=== PATIENT | female | born 1955 | race African-American/Black ===

== ENCOUNTER 2017-07-16 08:17 | Emergency (ER) | payer OTHER ==
[~2017-07-16] VITALS: Ht 167.6 cm; Wt 52.2 kg
[~2017-07-16 08:17] MED LIST: HYDR-971 PO
[2017-07-16 08:26] VITALS: BP 123/82
--- NOTE | 2017-07-16 08:49 | PHYS DOC ---
Past Medical History Past Medical History: No Pertinent History, Pneumonia Past Surgical History: No Surgical History Alcohol Use: None Drug Use: None Adult General Chief Complaint Chief Complaint: INSECT BITE [facility] HPI Patient is a 61 year old female presents to the emergency department with a history of insect bites to the right lower leg and right forearm. Patient states she was walking thru the grass when she noticed the bites. Patient states they itch and are very irritating. Patient denies fever, chills, or any drainage or discharge noted to the areas. Patient states she has not placed anything on the sites. Review of Systems Review of Systems Constitutional: Denies fever or chills [] Eyes: Denies change in visual acuity, redness, or eye pain [] HENT: Denies nasal congestion or sore throat [] Respiratory: Denies cough or shortness of breath [] Cardiovascular: No additional information not addressed in HPI [] GI: Denies abdominal pain, nausea, vomiting, bloody stools or diarrhea [] : Denies dysuria or hematuria [] Musculoskeletal: Denies back pain or joint pain [] Integument: Denies rash or skin lesions. Insect bites to right lower leg and right forearm. Neurologic: Denies headache, focal weakness or sensory changes [] Endocrine: Denies polyuria or polydipsia [] Allergies Allergies Allergies Coded Allergies Type Severity Reaction Last Updated Verified No Known Drug Allergies 01/06/14 No Physical Exam Physical Exam Constitutional: Well developed, well nourished, no acute distress, non-toxic appearance. [] HENT: Normocephalic, atraumatic, bilateral external ears normal, oropharynx moist, no oral exudates, nose normal. [] Eyes: PERRLA, EOMI, conjunctiva normal, no discharge. [] Neck: Normal range of motion, no tenderness, supple, no stridor. [] Cardiovascular:Heart rate regular rhythm Lungs & Thorax: no respiratory distress Skin: Warm, dry, no erythema, no rash. Patient with multiple bites to the right lower leg, and right forearm. Areas appear red in color, no drainage or discharge noted from the site. Back: No tenderness Extremities: No tenderness, no cyanosis, no clubbing, ROM intact, no edema. [] Neurologic: Alert and oriented X 3, normal motor function, normal sensory function, no focal deficits noted. [] Psychologic: Affect normal, judgement normal, mood normal. [] Current Patient Data Vital Signs Vital Signs Date Time Temp Pulse Resp B/P (MAP) Pulse Ox O2 Delivery O2 Flow Rate FiO2 07/16/17 08:26 98.6 67 16 123/82 (96) 97 Room Air 98.6 EKG EKG [] Radiology/Procedures Radiology/Procedures [] Course & Med Decision Making Course & Med Decision Making Pertinent Labs and Imaging studies reviewed. (See chart for details) Patient was instructed to keep the area clean and dry. Clean the site with soap and water. Watch for signs and symptoms of infection. Keep the area cool to prevent irritation. Patient was recommended to use over the counter medications for itching. Patient was also encouraged to use Benadryl 25 mg for itching and irritation. Patient agrees with discharge instructions. Patient was provided with signs and symptoms that become worse. Patient agrees with discharge instructions, treatment regimen and followup recommendations. [] Dragon Disclaimer Dragon Disclaimer This electronic medical record was generated, in whole or in part, using a voice recognition dictation system. Departure Departure Impression: Primary Impression: Insect bite Disposition: 01 HOME, SELF-CARE Condition: STABLE Referrals: TRUNG PORTILLO (PCP) Patient Instructions: Insect Bite, [id number] Additional Instructions: Activity as tolerated. Of headache or hydrocortisone cream may also be used to help with itching and irritation. Benadryl 25 mg every 6 hours also help however this medication will cause drowsiness do not take any be alert and oriented. Keep the area clean dry and cool. The conus will help prevent irritation as well. Watch for signs and symptoms of infection: Redness, warmth, tenderness or any yellow/greenish drainage of a come from the site physician occur follow-up through primary care physician immediately. Follow-up with your primary care physician as needed. Return back to emergency department for signs and symptoms that become worse.JODI Xiong APRN Jul 16, 2017 08:49
== END 2017-07-16 08:59 | disposition home or self-care (01) ==
LOC: ER 08:17
DX: S80.861A Insect bite (nonvenomous), right lower leg, initial encounter (principal); S50.861A Insect bite (nonvenomous) of right forearm, initial encounter; W57.XXXA Bitten or stung by nonvenomous insect and other nonvenomous arthropods, initial encounter; Y93.01 Activity, walking, marching and hiking; Y92.89 Other specified places as the place of occurrence of the external cause; Y99.8 Other external cause status
CPT/HCPCS: 99281